=== PATIENT | female | born 1965 | race Caucasian/White ===

== ENCOUNTER 2018-09-26 10:01 | Emergency (ER) | payer BC, OTHER ==
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
[2018-09-26 12:30] VITALS: BP 119/78
--- OUTSIDE RECORDS SUMMARY | 2018-09-26 15:14 | XMS REPORT | Continuity of Care Document ---
:1965 External Reference #:[id number] Author Name Tatiana Hatch M.D. Address [address] [place] [address] Care Team Providers Name Role Phone Asia Ramirez M.D. - Family Care Team Information [employer] Medicine Tatiana Hatch M.D. - Family Medicine Care Team Information [employer]ist Unavailable Problems Active Problems Provider Date Insomnia Asia Ramirez M.D. Onset: 01/18/2011 FH: Cardiovascular disease Asia Ramirez M.D. Onset: 01/18/2011 Family history of endocrine disorders Asia Ramirez M.D. Onset: 2010 H/O splenectomy Tatiana Hatch M.D. Onset: 01/24/2015 Idiopathic thrombocytopenic purpura Tatiana Hatch M.D. Onset: 01/24/2015 Moderate recurrent major depression Tatiana Hatch M.D. Onset: 01/24/2015 Hyperlipidemia Tatiana Hatch M.D. Onset: 01/25/2015 Impaired fasting glycaemia Tatiana Hatch M.D. Onset: 01/25/2015 Social History Type Date Description Comments Sex Unknown Tobacco Use Start: Unknown End: Former Cigarette Smoker stopped in mid-30s Unknown ETOH Use Rare Recreational Drug Use Former Drug User marijuana when younger Tobacco Use Start: Unknown End: Patient is a former Unknown smoker Smoking Status Reviewed: 03/18/17 Patient is a former smoker Allergies, Adverse Reactions, Alerts Active Allergies Reaction Severity Comments Date NKDA 04/12/2017 Inactive Allergies Gluten 05/10/2008 Medications Description No Active Medications Medications Administered in Office Medication SIG Qnty Indications Ordering Provider Date Brief Emotional/Behav CARLOS Delvalle 04/12/2017 Assessment W/ Scoring Doc Per Standard Inst Injection Injection Subcutaneous Or Family Medicine 02/26/2008 [facility] Injection Immunizations CPT Code Status Date Vaccine Lot # [id number] Given 03/18/2017 Influenza Vac, Quadrivalent, Slit Virus, Im [id number] 02145 Given 01/24/2015 Influenza Vac, Quadrivalent, Slit Virus, Im [id number] 22199 Given 03/22/2008 Pneumococcal Immunization [id number] 73636 Given 02/26/2008 Meningococcal Conjugate Vaccine,Serogroups For Intramuscular Use 64308 Given 02/26/2008 (IPV) Inactive Poliovirus Vaccine 26714 Given 02/26/2008 MMR Virus Immunization 27320 Given 07/13/2007 Tetanus And Diptheria Adult Preservative Free >7Yrs 38798 Given 01/11/2003 Hep A & Hep B Adult, adult dosage, for intramuscular use 63545 Given 01/11/2003 Hep A & Hep B Adult, adult dosage, for intramuscular use 68318 Given 08/05/2002 Hepatitis B Immunization, adult dosage, for intramuscular use 31437 Given 07/07/2002 Hep A & Hep B Adult, adult dosage, for intramuscular use 15066 Given 06/04/2001 Pneumococcal Immunization Vital Signs Date Vital Result Comment 09/22/2018 2:39pm BP Systolic 120 mmHg BP Diastolic 80 mmHg Heart Rate 72 /min Respiratory Rate 16 /min Height 64.25 inches 5'4.25" Weight 205.00 lb BMI (Body Mass Index) 34.9 kg/m2 06/26/2017 1:06pm BP Systolic 118 mmHg BP Diastolic 76 mmHg Heart Rate 56 /min Body Temperature 97.8 F Respiratory Rate 16 /min Height 64.25 inches 5'4.25" Weight 198.00 lb BMI (Body Mass Index) 33.7 kg/m2 Results Description No Information Available Procedures Date Code Description Status 01/27/2017 [id number] Mammogram Completed 05/22/2016 [id number] Mammogram Completed 03/23/2015 [id number] Colonoscopy Completed 01/27/2015 [id number] Mammogram Completed 01/30/2011 [id number] Mammogram Completed 09/20/2006 [id number] Mammogram Completed Medical Devices Description No Information Available Encounters Description No Information Available Assessments Date Code Description Provider 09/22/2018 M54.5 Low back pain Tatiana Hatch M.D. 09/22/2018 Z90.81 Acquired absence of spleen Tatiana Hatch M.D. Plan of Treatment 09/22/2018 - Tatiana Hatch M.D.M54.5 Low back painComments:Take medications as directed. Can use heat or ice on area 15 minutes on/off. Use a tennis ball or foam roller to massage and loosen muscle spasm. Stretching exercises are recommended twice a day. Callif symptoms aren't improved/worsen in next 1-2 weeks. aleve 2 tabs 2x a day and cyclobenzaprine prn;Reviewed warning signs and symptoms. Reasons to return to office or proceed to emergency room discussed including but not limited to no improvement or worsening of symptoms. Advised to call the office for any questions or concerns. Patient verbalized understanding.Follow up:[id number] Acquired absence of spleenAllComments: Medication Management Patient Understands medications she's taking? Yes No Are there Barriers to Adherence? Yes No Has the patient been asked about herbal supplements and therapies, and OTC meds? Yes No Functional Status Description No Information Available Mental Status Description No Information Available Referrals Description No Information Available
== END 2018-09-26 12:30 | disposition home or self-care (01) ==
LOC: ED 10:01
DX: S09.90XA Unspecified injury of head, initial encounter (principal); M54.9 Dorsalgia, unspecified; V49.40XA Driver injured in collision with unspecified motor vehicles in traffic accident, initial encounter; Y92.410 Unspecified street and highway as the place of occurrence of the external cause; Y99.9 Unspecified external cause status; Z88.8 Allergy status to other drugs, medicaments and biological substances; Z87.891 Personal history of nicotine dependence
CPT/HCPCS: 72050; 72070; 99282

== ENCOUNTER 2023-10-14 20:56 | Observation (INO) ==
[2023-10-14] MEDS: Lactated Ringers 1000 ml BAG 1,000 ML IV ONE (21:37)
[2023-10-14 21:38] LABS: Hematocrit 41.4 % (35-45); Hemoglobin 13.5 g/dL (11.5-14.3); Mean Corpuscular Hgb Conc 32.6 g/dL (31-36); Mean Platelet Volume 8.6 fL (7.5-11.2); Platelet Count 420 10^3/uL (150-450); Red Cell Distribution Width 13.2 % (12-17); White Blood Count 21.3 10^3/uL (3.8-11.8)
[2023-10-14 22:02] LABS: Activated Partial Thrombo Time 33.6 seconds (26.0-38.0); INR 0.89 (0.85-1.14)
[2023-10-14 22:08] LABS: Albumin 4.5 g/dL (3.2-5.2); Albumin/Globulin Ratio 1.7 (1-3); C Reactive Protein 2.56 mg/L (<8.01); Calcium 9.1 mg/dL (8.6-10.3); Creatinine, Serum 0.82 mg/dL (0.51-0.95); Globulin 2.6 g/dL (2-4); Potassium 4.3 mmol/L (3.5-5.0); Total Bilirubin 0.2 mg/dL (0.2-1.0); Total Protein 7.1 g/dL (6.4-8.9); eGFR CKD-EPI 81.8 (>60)
[2023-10-14 22:29] LABS: ABS Basophils 0.2 10^3/uL (0.0-0.1); ABS Eosinophils 0.2 10^3/uL (0.0-0.5); ABS Lymphocytes 5.8 10^3/uL (1.0-4.8); ABS Monocytes 1.6 10^3/uL (0.0-0.9); ABS Neutrophils 13.5 10^3/uL (1.5-7.6); ABS Nucleated RBC 0.01 10^3/ul; Eosinophil % 1.1 %; Lymphocyte % 27.5 %; Nucleated Red Blood Cells % 0.1 %/100WBC (0.0-0.8)
[2023-10-14 22:44] LABS: Urine Appearance Clear; Urine Bilirubin Negative (Negative); Urine Blood 1+ (Negative); Urine Color Light-Yellow; Urine Glucose Negative (Negative); Urine Ketones Negative (Negative); Urine Nitrite Negative (Negative); Urine Protein Negative (Negative); Urine Specific Gravity 1.011 (1.002-1.030); Urine Urobilinogen Negative (Negative); Urine pH 5.5 (5.0-8.0)
[2023-10-14 22:47] LABS: Urine Bacteria Absent /HPF (Absent); Urine Red Blood Cell 1+(3-5/hpf) /HPF (0-Trace); Urine White Blood Cell Absent /HPF (0-Trace)
[2023-10-15 02:02] LABS: Hematocrit 38.9 % (35-45); Hemoglobin 12.6 g/dL (11.5-14.3)
[2023-10-15] MEDS: metroNIDAZOLE IV 500 MG/100ML 500 MG/100 ML BAG IVPB SCH ×2 (04:00→16:02)
[2023-10-15] MEDS: cefTRIAXone 2 gm/50 mL D5W 2 GM/50 ML BAG IV SCH (04:00)
[2023-10-15] MEDS: Lactated Ringers 1000 ml BAG 1,000 ML IV SCH (04:58)
[2023-10-15 05:09] LABS: Hematocrit 39.8 % (35-45); Hemoglobin 13.4 g/dL (11.5-14.3); Mean Corpuscular Hemoglobin 31.1 pg (27-33); Mean Corpuscular Hgb Conc 33.6 g/dL (31-36); Mean Corpuscular Volume 92.5 fL (80-97); Mean Platelet Volume 8.9 fL (7.5-11.2); Platelet Count 424 10^3/uL (150-450); Red Blood Count 4.31 10^6/uL (3.63-4.92); Red Cell Distribution Width 13.4 % (12-17); White Blood Count 17.5 10^3/uL (3.8-11.8)
[2023-10-15] MEDS: Ondansetron 4 mg VIAL 2 MG/ML 2 ml VIAL IV PRN (05:12)
[2023-10-15 05:19] LABS: ABS Basophils 0.1 10^3/uL (0.0-0.1); ABS Eosinophils 0.1 10^3/uL (0.0-0.5); ABS Lymphocytes 6.3 10^3/uL (1.0-4.8); ABS Monocytes 1.5 10^3/uL (0.0-0.9); ABS Neutrophils 9.5 10^3/uL (1.5-7.6); ABS Nucleated RBC 0.01 10^3/ul; Eosinophil % 0.8 %; Lymphocyte % 36.3 %; Nucleated Red Blood Cells % 0.1 %/100WBC (0.0-0.8)
[2023-10-15 05:31] LABS: Albumin 3.9 g/dL (3.2-5.2); Albumin/Globulin Ratio 1.6 (1-3); Calcium 8.5 mg/dL (8.6-10.3); Creatinine, Serum 0.81 mg/dL (0.51-0.95); Globulin 2.4 g/dL (2-4); Total Bilirubin 0.3 mg/dL (0.2-1.0); Total Protein 6.3 g/dL (6.4-8.9); eGFR CKD-EPI 83.1 (>60)
[2023-10-15] MEDS: Iodixanol (CONTRAST) 320 MG/ML 100 ML SDV IV ONE (06:24)
[2023-10-15] MEDS: Acetaminophen IV 1 GM/100ML 1,000 MG/100 ML BAG IV PRN (08:08)
[2023-10-16] MEDS: cefTRIAXone 2 gm/50 mL D5W 2 GM/50 ML BAG IV SCH (04:34)
[2023-10-16 05:48] LABS: Hematocrit 35.6 % (35-45); Hemoglobin 11.9 g/dL (11.5-14.3); Mean Corpuscular Hgb Conc 33.5 g/dL (31-36); Mean Corpuscular Volume 92.3 fL (80-97); Mean Platelet Volume 8.5 fL (7.5-11.2); Platelet Count 356 10^3/uL (150-450); Red Blood Count 3.85 10^6/uL (3.63-4.92); Red Cell Distribution Width 13.4 % (12-17); White Blood Count 16.9 10^3/uL (3.8-11.8)
[2023-10-16 06:04] LABS: Calcium 8.2 mg/dL (8.6-10.3); Creatinine, Serum 0.7 mg/dL (0.51-0.95); Potassium 3.8 mmol/L (3.5-5.0); eGFR CKD-EPI 98.9 (>60)
[2023-10-16 08:08] LABS: ABS Basophils 0.1 10^3/uL (0.0-0.1); ABS Eosinophils 0.3 10^3/uL (0.0-0.5); ABS Lymphocytes 6.5 10^3/uL (1.0-4.8); ABS Monocytes 1.3 10^3/uL (0.0-0.9); ABS Neutrophils 8.8 10^3/uL (1.5-7.6); ABS Nucleated RBC 0.01 10^3/ul; Eosinophil % 1.9 %; Lymphocyte % 38.1 %; Nucleated Red Blood Cells % 0.1 %/100WBC (0.0-0.8)
[2023-10-16] MEDS ORDERED: fentaNYL 100 mcg/2 ml 50 MCG/ML VIAL ONE (13:52)
[2023-10-16] MEDS ORDERED: Midazolam 10 mg/10 ml VIAL 1 mg/ml 10 ml VIAL (10 mg) ONE (13:52)
[2023-10-16 16:42] VITALS: BP 120/60
== END 2023-10-16 17:45 | disposition home or self-care (01) | DRG 253 ==
LOC: ED 20:56 → EDHOLD 10-15 02:05 → INTOOBSV 10-15 02:05 → SUATTDRO 10-15 02:05 → MEDTELE 10-15 12:07
PROVIDERS: ADMIT Internal Medicine; ATTEND Student in an Organized Health Care Education/Training Program